=== PATIENT | female | born 1945 | race Caucasian/White ===

== ENCOUNTER 2017-08-27 12:40 | Emergency (ER) | payer MEDICARE ==
[2017-08-27] MEDS ORDERED: Aspirin Low Dose CHEW TAB* 81 MG PO ONE (12:59)
--- NOTE | 2017-08-27 13:04 | UC ---
Cardiac HPI - HPI Summary HPI Summary: GRADUAL ONSET OF MID STERNAL CHEST PRESSURE YESTERDAY AFTERNOON THAT GOT WORSE OVER THE COURSE OF THE EVENING. HAS SOME MILD SOB AND ALSO SOME NAUSEA. DENIES FEVER, SWEATS. HAS NO PERSONAL H/O CARDIAC DISEASE. NO RADIATION OF THE PAIN. FEELS WORSE WITH MILD EXERTION - PUTTING CLOTHES ON. HAS MALAISE, FEELS TIRED. - History of Current Complaint Chief Complaint: UCChestPain Stated Complaint: CHEST PAIN Time Seen by Provider: 08/27/17 12:48 Hx Obtained From: Patient, Family/Vp Client Services - Onset/Duration: Gradual Onset, Lasting Hours, Still Present Timing: Constant Initial Severity: Moderate Current Severity: Moderate Pain Intensity: 7 Chest Pain Location: Mid Sternal Character: Skipped Beats, Pressure/Squeezing Aggravating Factor(s): Exertion Alleviating Factor(s): Nothing Associated Signs & Symptoms: Positive: Chest Pain, Headaches, SOB, Nausea/ Vomiting, Palpitations. Negative: Dizziness, Syncope, Fever, Cough - Allergy/Home Medications Allergies/Adverse Reactions: Allergies Allergy/AdvReac Type Severity Reaction Status Date / Time No Known Allergies Allergy Verified 08/27/17 12:54 Home Medications: Home Medications Fluticasone HFA 110 mcg(NF) [Flovent HFA 110 mcg(NF)] 1 puff INH DAILY 08/27/17 [History Confirmed 08/27/17] PMH/Surg Hx/FS Hx/Imm Hx Respiratory History: Asthma - Surgical History Surgical History: Yes Surgery Procedure, Year, and Place: RIGHT BREAST REDUCTION,HYSTERECTOMY,TUBAL, tonsils, appe, TMJ, shoulder bilat impingements, right carpal tunnel left knee replacement - Family History Known Family History: Positive: Unknown - PT ADOPTED - Social History Alcohol Use: Weekly Alcohol Amount: 3-4/WEEK Substance Use Type: None Smoking Status (MU): Never Smoked Tobacco Review of Systems Constitutional: Chills, Fatigue Respiratory: Shortness Of Breath Cardiovascular: Palpitations, Chest Pain Gastrointestinal: Nausea All Other Systems Reviewed And Are Negative: Yes Physical Exam Triage Information Reviewed: Yes Appearance: Well-Appearing, No Pain Distress, Well-Nourished Vital Signs: Initial Vital Signs Temp 97.7 F 08/27/17 12:50 Pulse 85 08/27/17 12:50 Resp 17 08/27/17 12:50 BP 156/85 08/27/17 12:50 Pulse Ox 99 08/27/17 12:50 Vital Signs Reviewed: Yes Eyes: Positive: Conjunctiva Clear ENT: Positive: Hearing grossly normal Neck: Positive: Supple, Nontender, No Lymphadenopathy Respiratory Exam: Normal Cardiovascular: Positive: Other: - FREQUENT ECTOPIC BEATS Abdomen Description: Positive: Soft Musculoskeletal: Positive: No Edema Neurological: Positive: Alert Psychological: Positive: Age Appropriate Behavior Skin: Negative: rashes Diagnostics - EKG Cardiac Rate: NL Cardiac Rhythm: Sinus: Normal - 80 BPM Ectopy: PACs ST Segment: Non-Specific - Clinical Impression Provider Diagnoses: CHEST PAIN - Physician Notifications Discussed Patient Care With: Ewa VILLAR [facility] Time Discussed With Above Provider: 13:10 Instructed by Provider To: Will See In ED Discharge - Discharge Plan Condition: Stable Disposition: TRANS HIGHER LVL OF CARE FAC Referrals: Jeff Villalba MD [Primary Care Provider] -
[2017-08-27] MEDS ORDERED: Nitroglycerin TAB 0.4 MG* 0.4 MG TAB SL ONE (13:06)
[2017-08-27 13:22] VITALS: BP 113/68
== END 2017-08-27 13:28 | disposition short-term general hospital (02) ==
LOC: UCEAST 12:40
DX: R07.89 Other chest pain (principal); Z72.89 Other problems related to lifestyle
CPT/HCPCS: 93005; 99203; A9270-GY; G0463

== ENCOUNTER 2017-08-27 13:43 | Observation (INO) | payer MEDICARE ==
--- NOTE | 2017-08-27 16:31 | RAD ---
Indication: Chest pressure. History of asthma. Comparison: March 29, 2015 Technique: Upright AP 1610 hours Report: Elevated lung volumes and both diffuse mild prominence of the interstitial markings and patchy rarefaction of the mid to upper lung zone interstitial markings. RIGHT epicardial fat pad noted. Negative for cardiomegaly. Tortuous thoracic aorta increased over the prior exam. Unremarkable central pulmonary vasculature. IMPRESSION: Stigmata of obstructive lung disease. No acute pulmonary or cardiac process evident.
[2017-08-27 16:52] LABS: ABS Basophils 0.1 10^3/ul (0-0.2); ABS Eosinophils 0 10^3/ul (0-0.6); ABS Lymphocytes 0.4 10^3/ul (1.0-4.8); ABS Monocytes 0.5 10^3/ul (0-0.8); ABS Neutrophils 4.7 10^3/ul (1.5-7.7); ABS Nucleated RBC 0 10^3/ul; Eosinophil % 0.4 % (0-6); Hematocrit 37 % (35-47); Hemoglobin 12.4 g/dl (12.0-16.0); Lymphocyte % 6.4 % (25-47); Mean Corpuscular HGB Conc 34 g/dl (31-36); Mean Corpuscular Hemoglobin 32 pg (27-31); Mean Corpuscular Volume 94 fL (80-97); Mean Platelet Volume 8 um3 (7.4-10.4); Nucleated Red Blood Cells % 0; Platelet Count 212 10^3/ul (150-450); Red Blood Count 3.94 10^6/ul (4.0-5.4); Red Cell Distribution Width 14 % (10.5-15); White Blood Count 5.7 10^3/ul (3.5-10.8)
[2017-08-27] MEDS ORDERED: Oseltamivir CAP* 75 MG PO ONE (17:04)
[2017-08-27 17:16] LABS: EGFR Non-African American 67.6 (>60)
--- NOTE | 2017-08-27 17:33 | ED ---
Mike Raya Tecjoon, scribed for Cesar Gutierrez MD on 08/27/17 at 1608 . HPI Chest Pain - HPI Summary HPI Summary: This patient is a 71 year old female BIBA to [facility] accompanied by family with a chief complaint of chest pressure since yesterday at approx. 1600. Patient states the chest pressure lasted all evening and night, until she went to [facility] care and was given nitroglycerin, at which point the chest pressure resolved. Symptoms aggravated by nothing. Symptoms alleviated by nothing. 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 Patient additionally reports cough, chills, headache, earache, dizziness, palpitations, nausea. Patient denies SOB, back pain, abd pain. - History of Current Complaint Chief Complaint: EDChestPainROMI Time Seen by Provider: 08/27/17 15:58 Hx Obtained From: Patient Onset/Duration: Started Days Ago - 1, Resolved Timing: Constant Current Severity: None Pain Intensity: 0 Pain Scale Used: 0-10 Numeric Character: Pressure/Squeezing Aggravating Factor(s): Nothing Alleviating Factor(s): Medication Associated Signs and Symptoms: Positive: Negative - SOB, back pain, abd pain, Other: - cough, chills, headache, earache, dizziness, palpitations, nausea - Allergy/Home Medications Allergies/Adverse Reactions: Allergies Allergy/AdvReac Type Severity Reaction Status Date / Time No Known Allergies Allergy Verified 08/27/17 12:54 Home Medications: Home Medications Albuterol inh POWDER (NF) [Proair Respiclick] 108 mcg PO DAILY 08/27/17 [ History Confirmed 08/27/17] Fluticasone HFA 110 mcg(NF) [Flovent HFA 110 mcg(NF)] 1 puff INH DAILY 08/27/17 [History Confirmed 08/27/17] PMH/Surg Hx/FS Hx/Imm Hx Previously Healthy: No Endocrine/Hematology History: Denies: Hx Diabetes, Hx Thyroid Disease Cardiovascular History: Denies: Hx Hypertension Respiratory History: Reports: Hx Asthma Denies: Hx Chronic Obstructive Pulmonary Disease (COPD) GI History: Denies: Hx Ulcer Musculoskeletal History: Reports: Hx Arthritis - LEFT KNEE Sensory History: Reports: Hx Cataracts - BILAT, Hx Contacts or Glasses - GLASSES Denies: Hx Hearing Aid Opthamlomology History: Reports: Hx Cataracts - BILAT, Hx Contacts or Glasses - GLASSES - Cancer History Hx Chemotherapy: No Hx Radiation Therapy: No - Surgical History Surgery Procedure, Year, and Place: RIGHT BREAST REDUCTION,HYSTERECTOMY,TUBAL, tonsils, appe, TMJ, shoulder bilat impingements, right carpal tunnel left knee replacement Hx Anesthesia Reactions: No - Immunization History Immunizations Up to Date: No Infectious Disease History: No Infectious Disease History: Reports: Hx Shingles Denies: Hx Clostridium Difficile, Hx Hepatitis, Hx Human Immunodeficiency Virus (HIV), Hx of Known/Suspected MRSA, Hx Tuberculosis, Hx Known/Suspected VRE , Hx Known/Suspected VRSA, History Other Infectious Disease, Traveled Outside the [place] in Last 30 Days - Family History Known Family History: Positive: Other - cancer; Family History: Pt was adopted - Social History Lives: With Family Alcohol Use: Weekly Alcohol Amount: 3-4/WEEK Hx Substance Use: No Substance Use Type: Reports: None Hx Tobacco Use: No Smoking Status (MU): Never Smoked Tobacco Do You Chew or Dip Tobacco: No Have You Chewed or Dipped Tobacco in the LAST YEAR: No Review of Systems Positive: Chills Positive: Ear Ache Positive: Palpitations, Chest Pain Positive: Cough. Negative: Shortness Of Breath Positive: Nausea. Negative: Abdominal Pain Musculoskeletal: Negative - back pain Neurological: Other - dizziness Positive: Headache All Other Systems Reviewed And Are Negative: Yes Physical Exam Vital Signs On Initial Exam: Initial Vitals Temp Pulse Resp BP Pulse Ox 99.3 F 80 15 111/77 96 08/27/17 13:57 08/27/17 13:57 08/27/17 13:57 08/27/17 13:57 08/27/17 13:57 - Sparkle Coma Scale Coma Scale Total: 14 Diagnostics - Vital Signs Vital Signs Temp Pulse Resp BP Pulse Ox 08/27/17 15:30 64 14 103/51 93 08/27/17 15:00 67 12 103/51 93 08/27/17 14:30 70 10 103/65 95 08/27/17 14:05 78 8 97 08/27/17 14:04 111/77 08/27/17 13:57 99.3 F 80 15 111/77 96 - Laboratory Lab Results: Lab Results 08/27/17 08/27/17 08/27/17 Range/Units 16:26 16:26 16:26 WBC 5.7 (3.5-10.8) 10^3/ul RBC 3.94 L (4.0-5.4) 10^6/ul Hgb 12.4 (12.0-16.0) g/dl Hct 37 (35-47) % MCV 94 (80-97) fL MCH 32 H (27-31) pg MCHC 34 (31-36) g/dl RDW 14 (10.5-15) % Plt Count 212 (150-450) 10^3/ul MPV 8 (7.4-10.4) um3 Neut % (Auto) 82.8 (38-83) % Lymph % (Auto) 6.4 L (25-47) % Cobb % (Auto) 9.4 H (1-9) % Eos % (Auto) 0.4 (0-6) % Baso % (Auto) 1.0 (0-2) % Absolute Neuts (auto) 4.7 (1.5-7.7) 10^3/ul Absolute Lymphs (auto) 0.4 L (1.0-4.8) 10^3/ul Absolute Monos (auto) 0.5 (0-0.8) 10^3/ul Absolute Eos (auto) 0 (0-0.6) 10^3/ul Absolute Basos (auto) 0.1 (0-0.2) 10^3/ul Absolute Nucleated RBC 0 10^3/ul Nucleated RBC % 0 APTT 31.4 (26.0-36.3) seconds Sodium (133-145) mmol/L Potassium (3.5-5.0) mmol/L Chloride (101-111) mmol/L Carbon Dioxide (22-32) mmol/L Anion Gap (2-11) mmol/L BUN (6-24) mg/dL Creatinine (0.51-0.95) mg/dL Est GFR ( Amer) (>60) Est GFR (Non-Af Amer) (>60) BUN/Creatinine Ratio (8-20) Glucose (70-100) mg/dL Lactic Acid (0.5-2.0) mmol/L Calcium (8.6-10.3) mg/dL Total Bilirubin (0.2-1.0) mg/dL AST (13-39) U/L ALT (7-52) U/L Alkaline Phosphatase (34-104) U/L Troponin I (<0.04) ng/mL B-Natriuretic Peptide 138 H ( - 100) pg/mL Total Protein (6.4-8.9) g/dL Albumin (3.2-5.2) g/dL Globulin (2-4) g/dL Albumin/Globulin Ratio (1-3) Influenza A (Rapid) (Negative) Influenza B (Rapid) (Negative) 08/27/17 08/27/17 08/27/17 Range/Units 16:26 16:26 16:30 WBC (3.5-10.8) 10^3/ul RBC (4.0-5.4) 10^6/ul Hgb (12.0-16.0) g/dl Hct (35-47) % MCV (80-97) fL MCH (27-31) pg MCHC (31-36) g/dl RDW (10.5-15) % Plt Count (150-450) 10^3/ul MPV (7.4-10.4) um3 Neut % (Auto) (38-83) % Lymph % (Auto) (25-47) % Cobb % (Auto) (1-9) % Eos % (Auto) (0-6) % Baso % (Auto) (0-2) % Absolute Neuts (auto) (1.5-7.7) 10^3/ul Absolute Lymphs (auto) (1.0-4.8) 10^3/ul Absolute Monos (auto) (0-0.8) 10^3/ul Absolute Eos (auto) (0-0.6) 10^3/ul Absolute Basos (auto) (0-0.2) 10^3/ul Absolute Nucleated RBC 10^3/ul Nucleated RBC % APTT (26.0-36.3) seconds Sodium 138 (133-145) mmol/L Potassium 4.1 (3.5-5.0) mmol/L Chloride 105 (101-111) mmol/L Carbon Dioxide 27 (22-32) mmol/L Anion Gap 6 (2-11) mmol/L BUN 17 (6-24) mg/dL Creatinine 0.83 (0.51-0.95) mg/dL Est GFR ( Amer) 86.9 (>60) Est GFR (Non-Af Amer) 67.6 (>60) BUN/Creatinine Ratio 20.5 H (8-20) Glucose 111 H (70-100) mg/dL Lactic Acid 1.3 (0.5-2.0) mmol/L Calcium 8.8 (8.6-10.3) mg/dL Total Bilirubin 0.60 (0.2-1.0) mg/dL AST 18 (13-39) U/L ALT 14 (7-52) U/L Alkaline Phosphatase 57 (34-104) U/L Troponin I 0.00 (<0.04) ng/mL B-Natriuretic Peptide ( - 100) pg/mL Total Protein 6.6 (6.4-8.9) g/dL Albumin 3.9 (3.2-5.2) g/dL Globulin 2.7 (2-4) g/dL Albumin/Globulin Ratio 1.4 (1-3) Influenza A (Rapid) Positive H (Negative) Influenza B (Rapid) Negative (Negative) Result Diagrams: 08/27/17 16:26 08/27/17 16:26 Lab Statement: Any lab studies that have been ordered have been reviewed, and results considered in the medical decision making process. - Radiology CXR Xray Interpretation: Positive (See Comments) - IMPRESSION: Stigmata of obstructive lung disease. No acute pulmonary or cardiac process evident. ED physician has reviewed this radiology report. Radiology Interpretation Completed By: Radiologist Chest Pain Course/Dx - Diagnoses Provider Diagnoses: Chest pain, Influenza A Discharge - Discharge Plan Condition: Good Disposition: ADMITTED TO [facility] Referrals: Jeff Villalba MD [Primary Care Provider] - The documentation as recorded by the Mike davis Tecjoon accurately reflects the service I personally performed and the decisions made by , Cesar Gutierrez MD.
[2017-08-27] MEDS ORDERED: Acetaminophen TAB* 325 MG PO PRN (17:37)
[2017-08-27] MEDS ORDERED: Albuterol 2.5 MG/3 ML NEB.SOL* (0.083%) INH PRN (17:37)
[2017-08-27] MEDS ORDERED: Ondansetron INJ* 2 MG/ML VIAL IV PRN (17:37)
[2017-08-27] MEDS: NS 0.9% 1000 ML* 1,000 ML IV SCH ×2 (17:57→21:14)
[2017-08-27 20:22] LABS: EGFR Non-African American 72.6 (>60)
[2017-08-27 20:34] LABS: INR 0.95 (0.77-1.02)
--- NOTE | 2017-08-27 20:37 | HP ---
CC: Dr. Villalba * HISTORY AND PHYSICAL: DATE OF ADMISSION: 08/27/17 PRIMARY CARE PROVIDER: Dr. Villalba. ATTENDING PHYSICIAN WHILE IN THE HOSPITAL: Lynn Henry MD * (report dictated by Eduardo Flower NP) CHIEF COMPLAINT: 1. I am not feeling well. 2. Chest pain. 3. Cough. HISTORY OF PRESENT ILLNESS: Ms. Dolan is a 71-year-old female patient. She has a history of asthma and vertigo who she says yesterday she just started not feeling well. She felt like she was having some chest pressure, discomfort on the top part of her chest. She was feeling congested, feeling fullness in her ears. She felt nauseated. She felt chills off and on yesterday and she was just aching all over. She was on a heating blanket all day yesterday to try to help with her pain. Unfortunately, she just was not getting any better. She was continuing to have chest discomfort, so she felt that she needed to be evaluated and she went to the [facility]. They were concerned because of the chest discomfort and sent her here to the ER for evaluation. She does state that she has been again just achy, having chills and the pressure in her chest started yesterday and has been constant right arm through until today. She did receive a nitro at the [facility] and that made her pain subside. The patient said that she is not having any chest discomfort now. She does state that she has been having some chills still and is still aching all over. She denied having any shortness of breath. She said she has been coughing just starting today and it has been productive at times of a yellowish type sputum. When she came into the ED there was concern because of the chest discomfort. Ultimately, it was found that she had influenza and we were asked to evaluate for admission. PAST MEDICAL HISTORY: 1. Asthma. 2. Vertigo. PAST SURGICAL HISTORY: 1. She has had an appendectomy. 2. Tonsillectomy and adenoidectomy. 3. Tubal ligation. 4. D and C. 5. She has had about 7 knee surgeries. She has had a total knee replacement on the right. 6. She has had a hysterectomy. 7. She has had a shoulder surgery. 8. She has had cataract extraction and she has had a breast reduction. MEDICATIONS: The home meds according to the list that she provided include: 1. ProAir 1 puff daily. 2. Flovent 1 puff inhaled daily. ALLERGIES: Her allergy to medications include no known drug allergies. FAMILY HISTORY: She does not know her parents' history as she was adopted. SOCIAL HISTORY: She does not smoke. She rarely drinks alcohol. Surrogate decision maker is her , Simone. REVIEW OF SYSTEMS: Reveals no documented fever. She does admit to having subjective chills. There is no abdominal pain. There was nausea but no vomiting. No dysuria, no frequency. There was no loss of consciousness. No pruritus. There were no skin ulcerations. There was no abdominal pain. There was chest pressure as described in my HPI that has been constant since yesterday. It is not positional, not reproducible. She denies any shortness of breath. No orthopnea. No nocturnal dyspnea. There was nausea, but no vomiting or diarrhea, no dysuria, no frequency. There was no loss of conscious , no pruritus, and no skin ulcerations. Review of 14 systems was completed, all others negative. PHYSICAL EXAMINATION GENERAL: At this time, Ms. Dolan is a 71-year-old female patient. She appears to be well nourished and well developed. She does not appear to be any acute distress. VITAL SIGNS: Blood pressure 117/71, pulse 71, respirations were 16, O2 sat was 93% on room air, temperature 99.3. HEENT: Head: Atraumatic. Normocephalic. Eyes: EOMs are intact. Sclerae anicteric and not pale. Throat: Oral mucosa appears to be moist. No oropharyngeal erythema. NECK: Supple. LUNGS: She had some rhonchi in the right upper lobe. Equal diaphragmatic expansion. HEART: Sounds S1, S2. Regular rate and rhythm. No murmurs, rubs, or gallops. ABDOMEN: Soft, flat, nontender. Bowel sounds were present. EXTREMITIES: Pulses were 2+ throughout. She had no peripheral edema. Moving all 4 extremities with 5/5 strength. NEUROLOGIC: The patient is awake. She is alert. She is oriented x3. Tongue is midline. Assembler Bonding are equal. She had no gross focal deficits. SKIN: Intact. DIAGNOSTIC STUDIES/LAB DATA: WBC of 5.7, RBC of 3.94, hemoglobin 12.4, hematocrit of 37, platelet count of 212. PTT was 31.4. Sodium 138, potassium 4.1, chloride of 105, bicarb 27, BUN 17, creatinine 0.83, glucose 101. Lactate 1.3. Calcium 8.8. Total bili 0.6, AST 18, ALT 14, alk phos 57. Troponin 0. Albumin of 3.9. Serology was positive for the flu. She did have an EKG obtained today that shows a normal sinus rhythm, rate of 73. She did have biphasic T waves in V4, V5 and V6 along with V3, flat in V1 and V2. EKG earlier today showed flattening in V1, V2 and V3, upright in V4, V5 and V6. Look back from an EKG from 2014, it appears to be similar to the one that was taken earlier at the [facility] today, but again there is new biphasic T waves in V4, V5 and V6. If we look back from our 03/29/15 exam, those biphasic T waves were present then as well. She did have a chest x-ray obtained today, which revealed stigmata of obstructive lung disease. No acute pulmonary process or cardiac process evident. Old medical records were reviewed. ASSESSMENT AND PLAN: Mrs. Dolan is a 71-year-old female patient coming into the ED today with complaints of cough, chills, not feeling well, aching all over. On evaluation here in the ED was found to have flu and in addition to that there was complaint of chest pain. She will admitted under observation status for: 1. Chest discomfort: At this point, I will go ahead and cycle her troponins though I think this is probably related to her underlying influenza. I will get a repeat EKG in the morning, get serial troponin, place her on telemetry and follow. An aspirin was given already today. We will monitor her. 2. Influenza: We will put her on the Tamiflu and we will continue p.r.n. nebs and we will continue to follow and we will support her with IV hydration. I did order some p.r.n. Zofran. 3. Asthma: Continue the Flovent, p.r.n. albuterol. 4. Vertigo: Continue supportive care. 5. DVT prophylaxis: She will be placed on heparin subcu. 6. Code status: Full code. 7. Fluids, electrolytes, and nutrition: She can have a regular diet. TIME SPENT: Time spent on admission was 60 minutes, greater than half the time was spent [id number] with the patient obtaining my history and physical, other half time was spent going over the plan of care with the patient and implementing plan of care. I did discuss the plan of care with my attending, Dr. Henry; she is in agreement. EDUARDO FLOWER, LANG [id number]/CPS #: [id number] REID
[2017-08-27] MEDS: Heparin VIAL(*) 5000 UNITS/ML VIAL (FIVE THOUSAND) SUBCUT SCH (21:14)
[2017-08-28] MEDS: Oseltamivir CAP* 75 MG PO SCH ×2 (00:04→09:01)
[2017-08-28] MEDS: Heparin VIAL(*) 5000 UNITS/ML VIAL (FIVE THOUSAND) SUBCUT SCH (06:01)
[2017-08-28 11:17] VITALS: BP 109/56
[2017-08-28] MEDS ORDERED: Mometasone 220 MCG MDI INH SCH (18:00)
--- NOTE | 2017-08-29 17:24 | DS ---
CC: Dr. Jeff Villalba * DISCHARGE SUMMARY: DATE OF ADMISSION: 08/27/17 DATE OF DISCHARGE: 08/28/17 PRIMARY CARE PROVIDER: Dr. Jeff Villalba. ATTENDING PHYSICIAN WHILE IN THE HOSPITAL: Dr. Sher Fontana * (DICTATED BY JON WORKMAN) PRIMARY DISCHARGE DIAGNOSIS: Influenza A. SECONDARY DISCHARGE DIAGNOSES: 1. Asthma. 2. Vertigo. STUDIES DONE WHILE IN THE HOSPITAL: 1. Chest x-ray from 08/27/17 read as stigmata of obstructive lung disease, no acute pulmonary or cardiac process evident. 2. Electrocardiogram from 08/27/17 shows normal sinus rhythm; T-wave flattening in V1 and V2; T-wave inversion in V3, V4; PACs; QTc of 521; left axis deviation; no other abnormalities. 3. EKG repeat from 08/27/17 shows no significant changes, fewer PACs, QTc of 536. 4. EKG from 08/28/17, which showed some T-wave flattening, QTc of 606, no other significant changes from previous exam. MEDICATIONS AT DISCHARGE: 1. Flovent 1 inhalation daily. 2. ProAir RespiClick 108 mcg p.o. daily. 3. Tylenol 650 mg p.o. q.4 hours as needed. 4. Mucinex 1200 mg p.o. b.i.d. 5. Motrin 600 mg p.o. q.6 hours. 6. Tamiflu 75 mg p.o. b.i.d. New medications at discharge: 1. Tylenol. 2. Mucinex. 3. Ibuprofen. 4. Oseltamivir. Medications discontinued at discharge: None. HOSPITAL COURSE: This is a brief summary of the patient's presentation. For more details, please see the history and physical from Eduardo Flower NP, from 08/27/17. In brief, the patient is a 71-year-old female with a past medical history significant as the above, who presented with congestion, fullness of her ears, nausea, and muscle aches. The patient went to [facility] initially. The patient had chest discomfort. The patient was sent to the ER. The patient received nitro at [facility] that made her pain subside. The patient did not have any chest discomfort. After that time, the patient was admitted to the hospital as she had a positive influenza test for influenza A. The patient was admitted over-night. The patient was initially tensive reading. The patient had a T-max of 101.4 and had consistently moderately elevated temperature. The patient has had never had toxic or had other signs of hemodynamic instability. The patient did not need inhaler treatments while in the hospital. The patient improved greatly overnight, felt better, but had persistent muscle aches, shortness of breath without hypoxia, and had minimal chest discomfort. The patient had troponin I of 0.01 x3. The patient had no leukocytosis or lactic acidosis. The patient had BNP of 138. No significant laboratory abnormalities. The patient was agreeable being sent home on Tamiflu , she will recuperate there. PHYSICAL EXAMINATION ON THE DAY OF DISCHARGE: General: The patient is a 71- year- old female who appears stated age and sitting comfortably in bed, in no acute distress. Vital Signs: At the time of discharge, temperature 100.2, pulse rate 54, respiratory rate 18, oxygen saturation 93% on room air, blood pressure 101/56. Neck: Supple, nontender. No lymphadenopathy. No carotid bruit auscultated. HEENT: Head: Normocephalic, atraumatic. Sclerae anicteric. No conjunctival injection. Nasal mucosa moist with slight discharge. Oral mucosa moist. Mild postnasal drip is noted. No pharyngeal erythema. Cardiac: Regular rate and rhythm. No clicks, murmurs, gallops, or rubs. Pulses 2+ in bilateral dorsalis pedis, posterior tibialis, and radial areas. Respiratory: Clear to auscultation bilaterally. No wheezes, rales, or rhonchi. Good air exchange bilaterally. Abdomen: Soft, nontender, nondistended. Bowel sounds present, normoactive in all 4 quadrants. No hepatosplenomegaly. No abdominal bruit auscultated. Genitourinary: No suprapubic tenderness, no CVA tenderness. Skin: Clean, dry, intact. No rash. Neuro: Cranial nerves II through XII are grossly intact. No focal deficits. Alert and oriented x3. Psychiatric: Pleasant and cooperative. DISCHARGE PLAN: The patient will be discharged to home. She will recuperate from her influenza. The patient was told to expect a 7-day course of her illness. The patient was already feeling better. The patient should take Tamiflu for a total of 10 doses as prescribed. The patient had chest discomfort that was resolved with nitroglycerin with T-wave inversions consistent with left ventricular strain. This is quite possibly due to her illness. The patient should have a test investigating her risk factors for coronary artery disease and should have primary prevention instituted for coronary artery disease as indicated. The patient should follow up with her primary care provider within 1 week. The patient should return to the hospital for severe increase in chest pain, shortness of breath, or other alarming symptoms. ACTIVITY: The patient should engage in activity as tolerated. The patient should avoid exposure to as many people as possible. The patient and her should call their primary care provider to get Tamiflu prophylaxis if he is unlikely to be able to avoid being exposed to her while she has the flu. DIET: The patient should have a regular unrestricted diet. TIME SPENT: Approximately 60 minutes was spent on this discharge, 30 of which was spent [id number] with the patient obtaining history and physical and discussing treatment plan. JON WORKMAN [id number]/[facility] #: [id number]
== END 2017-08-28 14:39 | disposition home or self-care (01) ==
LOC: ED 13:43 → MEDTELE 17:35
PROVIDERS: ADMIT Internal Medicine; ATTEND Internal Medicine
DX: J11.1 Influenza due to unidentified influenza virus with other respiratory manifestations (principal); J45.909 Unspecified asthma, uncomplicated; R42 Dizziness and giddiness; Z79.899 Other long term (current) drug therapy; R07.9 Chest pain, unspecified; R94.31 Abnormal electrocardiogram [ECG] [EKG]
CPT/HCPCS: 36415; 71045; 80053; 82565; 83605; 83880; 84484; 84520; 85025; 85610; 85730; 87070; 87205; 87502; 93005; 96360; 96361; 96372; 99283; A9270-GY; G0378; J1644

== ENCOUNTER 2018-01-08 07:02 | Emergency (ER) | payer MEDICARE ==
[2018-01-08 07:24] VITALS: BP 126/92
--- NOTE | 2018-01-08 07:37 | UC ---
Skin Complaint HPI - HPI Summary HPI Summary: 72 year old female with tick complaint. Left side/flank tick still attached unsure of attachment date. Redness noted and tick engorged been on for 3 or so days. no fever. no malaise. no body aches. has had ticks in the past and did last year. [ End ] - History of Current Complaint Chief Complaint: UCGeneralIllness Time Seen by Provider: 01/08/18 07:34 Stated Complaint: TICK BITE Hx Obtained From: Patient Onset/Duration: Sudden Onset Timing: Constant Pain Intensity: 0 Related History: Insect Bite/Sting - Allergy/Home Medications Allergies/Adverse Reactions: Allergies Allergy/AdvReac Type Severity Reaction Status Date / Time No Known Allergies Allergy Verified 08/27/17 12:54 Review of Systems Skin: Rash - tick bite Is Patient Immunocompromised?: No All Other Systems Reviewed And Are Negative: Yes PMH/Surg Hx/FS Hx/Imm Hx Previously Healthy: Yes - Surgical History Surgical History: Yes Surgery Procedure, Year, and Place: RIGHT BREAST REDUCTION,HYSTERECTOMY,TUBAL, tonsils, appe, TMJ, shoulder bilat impingements, right carpal tunnel left knee replacement - Family History Known Family History: Positive: Unknown - PT ADOPTED, Other - cancer; Family History: Pt was adopted - Social History Occupation: Retired Alcohol Use: Occasionally Alcohol Amount: 3-4/WEEK Substance Use Type: None Smoking Status (MU): Never Smoked Tobacco - Immunization History Most Recent Tetanus Shot: UNK Physical Exam Triage Information Reviewed: Yes Appearance: Well-Appearing, No Pain Distress, Well-Nourished Vital Signs: Initial Vital Signs Temp 98.1 F 01/08/18 07:09 Pulse 76 01/08/18 07:09 Resp 18 01/08/18 07:09 BP 126/92 01/08/18 07:09 Pulse Ox 98 01/08/18 07:09 Vital Signs Reviewed: Yes Eyes: Positive: Conjunctiva Clear ENT: Positive: Hearing grossly normal Respiratory Exam: Normal Cardiovascular Exam: Normal Neurological Exam: Normal Psychological Exam: Normal Skin Exam: Normal Skin: Positive: Other - tick intact left flank with redness around bite no EM Course/Dx - Course Course Of Treatment: tick removed completely with tick twister no difficulty. - Differential Diagnoses - Skin Complaint Differential Diagnoses: Tick Born Illness, Other - tick bite - Diagnoses Provider Diagnoses: tick bite left flank Discharge - Sign-Out/Discharge Documenting (check all that apply): Discharge/Admit/Transfer - Discharge Plan Condition: Good Disposition: HOME Prescriptions: Doxycycline Hyclate 100 mg PO ONCE #2 tablet Patient Education Materials: Tick Bite (ED) Referrals: Jeff Villalba MD [Primary Care Provider] - 4 Days - Billing Disposition and Condition Condition: GOOD Disposition: HOME
== END 2018-01-08 08:00 | disposition home or self-care (01) ==
LOC: UCEAST 07:02
DX: S30.861A Insect bite (nonvenomous) of abdominal wall, initial encounter (principal); W57.XXXA Bitten or stung by nonvenomous insect and other nonvenomous arthropods, initial encounter; Y93.9 Activity, unspecified; Y92.9 Unspecified place or not applicable
CPT/HCPCS: 99212; G0463

== ENCOUNTER 2018-06-04 08:22 | Emergency (ER) | payer MEDICARE ==
[2018-06-04 08:30] VITALS: BP 159/91
--- NOTE | 2018-06-04 08:58 | ED ---
Back Pain - HPI Summary HPI Summary: low back pain for the last two days. no associated pain in the legs, no numbness or weakness, no hx. of trauma. no prior hx. of low back pain , denies dysuria - History of Current Complaint Chief Complaint: UCBackPain Stated Complaint: LOWER BACK PAIN Time Seen by Provider: 06/04/18 08:54 Hx Obtained From: Patient Onset/Duration: Sudden Onset, Lasting Days Onset/Duration: Started Days Ago Timing: Intermittent Back Pain Location: Is Discrete @ Severity Currently: Moderate Pain Intensity: 8 Character: Dull, Aching Aggravating Symptom(s): Bending Alleviating Symptom(s): Rest Associated Signs And Symptoms: Positive: Negative - Allergies/Home Medications Allergies/Adverse Reactions: Allergies Allergy/AdvReac Type Severity Reaction Status Date / Time No Known Allergies Allergy Verified 06/04/18 08:30 PMH/Surg Hx/FS Hx/Imm Hx Previously Healthy: Yes Endocrine/Hematology History: Denies: Hx Diabetes, Hx Thyroid Disease Cardiovascular History: Denies: Hx Hypertension Respiratory History: Reports: Hx Asthma Denies: Hx Chronic Obstructive Pulmonary Disease (COPD) GI History: Denies: Hx Ulcer Musculoskeletal History: Reports: Hx Arthritis - LEFT KNEE Sensory History: Reports: Hx Cataracts - BILAT, Hx Contacts or Glasses Denies: Hx Hearing Aid Opthamlomology History: Reports: Hx Cataracts - BILAT, Hx Contacts or Glasses - Cancer History Hx Chemotherapy: No Hx Radiation Therapy: No - Surgical History Surgery Procedure, Year, and Place: RIGHT BREAST REDUCTION,HYSTERECTOMY,TUBAL, tonsils, appe, TMJ, shoulder bilat impingements, right carpal tunnel left knee replacement Hx Anesthesia Reactions: No Infectious Disease History: No Infectious Disease History: Reports: Hx Shingles Denies: Hx Clostridium Difficile, Hx Hepatitis, Hx Human Immunodeficiency Virus (HIV), Hx of Known/Suspected MRSA, Hx Tuberculosis, Hx Known/Suspected VRE , Hx Known/Suspected VRSA, History Other Infectious Disease, Traveled Outside the [place] in Last 30 Days - Family History Known Family History: Positive: Unknown - PT ADOPTED, Other - cancer; Family History: Pt was adopted - Social History Alcohol Use: Occasionally Alcohol Amount: 3-4/WEEK Hx Substance Use: No Substance Use Type: Reports: None Hx Tobacco Use: No Smoking Status (MU): Never Smoked Tobacco Review of Systems Constitutional: Negative Eyes: Negative ENT: Negative Cardiovascular: Negative Respiratory: Negative Gastrointestinal: Negative Genitourinary: Negative Musculoskeletal: Negative Skin: Negative Physical Exam Triage Information Reviewed: Yes Vital Signs On Initial Exam: Initial Vitals Temp Pulse Resp BP Pulse Ox 35.9 C 86 17 159/91 98 06/04/18 08:26 06/04/18 08:26 06/04/18 08:26 06/04/18 08:26 06/04/18 08:26 Vital Signs Reviewed: Yes Appearance: Positive: Well-Appearing, No Pain Distress Skin: Positive: Warm, Dry Head/Face: Positive: Normal Head/Face Inspection Eyes: Positive: Normal ENT: Positive: Normal ENT inspection Neck: Positive: Supple Musculoskeletal: Positive: Other - tender to the right of midline of the lumbar spine Neurological: Positive: Normal, Sensory/Motor Intact - normal heel and toe walking, dtrs symmetrical, negative straight leg raising Diagnostics - Vital Signs Vital Signs Temp Pulse Resp BP Pulse Ox 06/04/18 08:26 35.9 C 86 17 159/91 98 - Laboratory Lab Statement: Any lab studies that have been ordered have been reviewed, and results considered in the medical decision making process. Discharge - Discharge Plan Referrals: Jeff Villalba MD [Primary Care Provider] -
--- NOTE | 2018-06-04 09:50 | RAD ---
Indication: Hematuria, back pain. CT of the abdomen and pelvis was performed without oral or IV contrast. Coronal and sagittal reconstructed images were obtained. The lung bases demonstrate no pleural fluid, nodules or masses. Scarring is noted in the lingula. No pleural fluid or alveolar consolidation is noted. The liver is normal in size. There are no focal lesions or intrahepatic duct dilatation noted. The gallbladder demonstrates no calcified gallstones. No pericholecystic fluid or wall thickening is noted. The pancreas demonstrates no mass or pancreatic duct dilatation. The spleen is normal in size. Calcified granuloma is noted in the spleen. No adrenal masses are noted. The kidneys demonstrate no hydronephrosis of either kidney. There is some mild perinephric infiltration of FAT of uncertain etiology. Aorta and inferior vena cava demonstrate atherosclerosis however no aneurysmal dilatation is noted. Common iliac artery and external iliac arteries are unremarkable. Evaluation of the pelvis demonstrates extensive diverticulosis of the sigmoid colon. No definite diverticulitis is noted. No hernias are noted. Patient status post hysterectomy. Beginning bladder is otherwise unremarkable. The bony structures are grossly unremarkable aside from some mild degenerative disc disease of the lumbar spine. IMPRESSION: No definite obstructive uropathy is noted. Perinephric infiltration of fat on the left kidney of uncertain etiology. There is diverticulosis of the sigmoid colon without definite evidence of diverticulitis. Degenerative disc disease at L2-L3 and L3-L4.
--- NOTE | 2018-06-04 21:41 | UC ---
- Progress Note Progress Note: Patient Name: PIPPA TIM Medical Record#: [id number] Ordering Physician: Gamaliel Mcconnell MD Acct.#: [id number] : 1945 Age: 72 Sex: F Location: [facility] Exam Date: 06/04/18921 ADM Status: REG ER Order Information: CT ABD/PEL W/O Accession Number: [id number] CPT: 01040 Indication: Hematuria, back pain. CT of the abdomen and pelvis was performed without oral or IV contrast. Coronal and sagittal reconstructed images were obtained. The lung bases demonstrate no pleural fluid, nodules or masses. Scarring is noted in the lingula. No pleural fluid or alveolar consolidation is noted. The liver is normal in size. There are no focal lesions or intrahepatic duct dilatation noted. The gallbladder demonstrates no calcified gallstones. No pericholecystic fluid or wall thickening is noted. The pancreas demonstrates no mass or pancreatic duct dilatation. The spleen is normal in size. Calcified granuloma is noted in the spleen. No adrenal masses are noted. The kidneys demonstrate no hydronephrosis of either kidney. There is some mild perinephric infiltration of FAT of uncertain etiology. Aorta and inferior vena cava demonstrate atherosclerosis however no aneurysmal dilatation is noted. Common iliac artery and external iliac arteries are unremarkable. Evaluation of the pelvis demonstrates extensive diverticulosis of the sigmoid colon. No definite diverticulitis is noted. No hernias are noted. Patient status post hysterectomy. Beginning bladder is otherwise unremarkable. The bony structures are grossly unremarkable aside from some mild degenerative disc disease of the lumbar spine. IMPRESSION: No definite obstructive uropathy is noted. Perinephric infiltration of fat on the left kidney of uncertain etiology. There is diverticulosis of the sigmoid colon without definite evidence of diverticulitis. Degenerative disc disease at L2-L3 and L3-L4. <Electronically signed by Leonila Shipley MD in [place]> 06/04/18946 Dictated By: Leonila Shipley MD Dictated Date/Time: 06/04/18946 Transcribed Date/Time: 06/04/18942 Copy to: CC:Gamaliel Mcconnell MD; Jeff Villalba MD Imaging - [facility] Imaging - [facility] Imaging - [facility] This report is only to be considered final once signed by the Provider(s) as displayed in the "<Electronically Signed by >" field (s). Absence of a signature indicates the report is in a draft status and still needs to be finalized. In the event this document was created by someone other than the signing Provider, the individual initiating the document will be listed in the "Entered by:" or "Dictated by:" weinstein. 1 of 2 Discharge - Sign-Out/Discharge Documenting (check all that apply): Post-Discharge Follow Up All imaging exams completed and their final reports reviewed: Yes - Discharge Plan Condition: Good Disposition: HOME Patient Education Materials: Low Back Strain (ED), Hematuria (ED) Referrals: Jeff Villalba MD [Primary Care Provider] - Additional Instructions: needs urology evaluation for hematuria - Billing Disposition and Condition Condition: GOOD Disposition: Home
== END 2018-06-04 10:15 | disposition home or self-care (01) ==
LOC: UCEAST 08:22
DX: M54.5 Low back pain (principal); R31.9 Hematuria, unspecified; K57.30 Diverticulosis of large intestine without perforation or abscess without bleeding; Z96.652 Presence of left artificial knee joint
CPT/HCPCS: 74176; 81003; 99211; G0463